=== PATIENT | female | born 1975 | race Caucasian/White ===

== ENCOUNTER → 2016-08-05 | Outpatient (CLI) | payer BC ==
[~2016-08-05] MED LIST: MTR600X PO; PRENTAB26 PO; TYL325X PO
== END | disposition home or self-care (01) ==
LOC: C.PAPS 10:00
PROVIDERS: ATTEND Obstetrics & Gynecology
DX: Z01.419 Encounter for gynecological examination (general) (routine) without abnormal findings (principal)

== ENCOUNTER 2020-07-30 09:03 | Observation (INO) ==
--- NOTE | 2020-07-30 09:36 | Emergency Department Note ---
History of Present Illness General Chief complaint: Abdominal Pain Stated complaint: ABDOMINAL PAIN Time Seen by Provider: 07/30/20 09:12 Source: patient Mode of arrival: ambulatory Limitations: no limitations History of Present Illness Maximum Pain Intensity: 4 This patient is a 44-year-old female who presents to the emergency department for evaluation of abdominal pain. Patient has had intermittent pain for the past 1 week. She states that her pain started in her lower abdomen but has gradually moved to be more on the right side. She states that she always has some mild pain, but there has been intermittent more severe pain. At this time, she rates her discomfort a 3/10. She has had associated bloating and gassiness. She denies nausea/vomiting, fever, or urinary symptoms. Last menstrual period was about 2 weeks ago and was normal. Denies abnormal vaginal discharge or bleeding. Patient was seen at [facility] 1 week ago as she thought she might have a urine infection due to the pain and had a urinalysis, however there was a lab error and this was never completed. Patient does admit to a COVID-19 exposure 12 days ago and has not developed any COVID symptoms in that time. She does have a pending COVID test which was ordered on 07/25/2020, however was not yet completed due to a lab error. Patient states she is otherwise healthy and denies any history of abdominal issues or surgeries. Home Medications Medication Instructions Recorded Confirmed Type No Known Home Medications 07/03/20 07/30/20 History Allergies Allergy/AdvReac Type Severity Reaction Status Date / Time No Known Allergies Allergy Unverified 07/30/20 09:46 Past Med/Surg History Medical History Common migraine without aura Surgical History H/O dilation and curettage H/O oral surgery H/O ovarian cystectomy Family History Other Asthma Hypertension Denies family history of Ovarian cancer Breast cancer Colorectal cancer Social History Smoking Status: Never smoker Hx Alcohol Use: Yes Hx Substance Use: No Preferred Language: [place]de[place] Feels Safe at Home: Yes Review of Systems A total of 10 systems reviewed and were otherwise negative Physical Exam Vital Signs Vital Signs - 24 hr 07/30/20 09:07 07/30/20 11:46 07/30/20 12:58 Temperature 37.2 C Temperature Source Temporal Artery Scan Pulse Rate 99 H Pulse Rate [Finger] 78 88 Respiratory Rate 16 16 18 Respiratory Effort / Characteristics Non-Labored Spontaneous Non-Labored Spontaneous Respiratory Depth Normal Normal Respiratory Pattern Regular Regular Blood Pressure 139/91 Blood Pressure [Right Arm] 132/75 149/79 H Blood Pressure Mean 107 Blood Pressure Mean [Right Arm] 94 102 Blood Pressure Position Sitting Pulse Oximetry 100 96 100 Oxygen Delivery Method Room Air Room Air Sepsis Recent Fever Within 48 Hours No Sepsis New/Unexplained Change in Mental Status N/A Sepsis Action Taken by Nursing No Action Required 07/30/20 13:49 Temperature Temperature Source Pulse Rate Pulse Rate [Finger] 68 Respiratory Rate 18 Respiratory Effort / Characteristics Respiratory Depth Respiratory Pattern Blood Pressure Blood Pressure [Right Arm] 149/79 H Blood Pressure Mean Blood Pressure Mean [Right Arm] 102 Blood Pressure Position Pulse Oximetry 99 Oxygen Delivery Method Sepsis Recent Fever Within 48 Hours Sepsis New/Unexplained Change in Mental Status Sepsis Action Taken by Nursing VITALS: Vitals are noted on the nurse's note and reviewed by myself. Vital s igns stable. GENERAL: This is a 44-year-old female, in no acute distress, nondiaphoretic, well-developed well-nourished. SKIN: The skin was without rashes. HEAD: Normocephalic atraumatic. EARS: External auditory canals clear, tympanic membranes pearly rivers without erythema or effusion bilaterally. EYES: Pupils equal round and reactive to light and accommodation. NOSE: Patent, turbinates without inflammation or discharge. MOUTH: Mucous membranes moist. Tonsils are not enlarged. Pharynx without erythema or exudate. NECK: Supple without nuchal rigidity. No lymphadenopathy. HEART: Regular rate and rhythm without murmurs gallops or rubs. LUNGS: Clear to auscultation bilaterally without wheezes, rales or rhonchi. No retractions or accessory muscle use. ABDOMEN: Positive bowel sounds x 4. Soft, moderate tenderness to palpation in the right lower quadrant. No guarding or rebound tenderness. NEURO: Patient was alert and oriented to person place and time. Course Consultations Consultation #1: Dr. Jasso - general surgery Administered Medications Discontinued Medications Cefoxitin Sodium (Mefoxin) 2,000 mg in 60 mls @ 100 mls/hr IV NOW STA Stop: 07/30/20 13:11 Last Infusion: 07/30/20 13:37 Dose: 0 mls/hr Documented by: [id number] Admin: 07/30/20 12:54 Dose: 100 mls/hr Documented by: [id number] Ioversol (Ioversol 100ml) 94 ml IV ONCE ONE Stop: 07/30/20 12:06 Last Admin: 07/30/20 12:06 Dose: 94 ml Documented by: [id number] Medical Decision Making Differential Diagnosis Appendicitis, ovarian cyst, ovarian torsion, ectopic , TOA, PID, infections, diverticulitis, UTI, obstruction, mesenteric ischemia, aortic pathology, inflammatory bowel disease, renal colic, PUD, pancreatitis, biliary pathology, hernia, volvulus, constipation, as well as other pathologies. Home Medications Current Medication List: was personally reviewed by me Laboratory Data Attestation: I reviewed the patient's lab results. Result diagrams: 07/30/20 Unknown 07/30/20 Unknown Lab Results 07/30/20 07/30/20 07/30/20 Range/Units 13:15 13:40 13:40 WBC (4.8-10.8) K/uL RBC (4.2-5.4) M/uL Hgb (12.0-16.0) g/dL Hct (37-47) % MCV (80-100) fL MCH (25-34) pg MCHC (32-36) g/dL RDW Std Deviation (36.4-46.3) fL RDW Coeff of Marek (11.5-14.5) % Plt Count (130-400) K/uL MPV (7.4-10.4) fL Immature Gran % (Auto) % Neut % (Auto) % Lymph % (Auto) % [place] % (Auto) % Eos % (Auto) % Baso % (Auto) % Neut # (Auto) (1.4-6.5) K/uL Lymph # (Auto) (1.2-3.4) K/uL [place] # (Auto) (0.11-0.59) K/uL Eos # (Auto) (0-0.5) K/uL Baso # (Auto) (0-0.2) K/uL Immature Gran # (Auto) (0.00-0.02) K/uL Sodium (136-145) mmol/L Potassium (3.5-5.1) mmol/L Chloride (98-107) mmol/L Carbon Dioxide (21-32) mmol/L Anion Gap (3-11) BUN (7-18) mg/dl Creatinine (0.6-1.2) mg/dl Est Cr Clr Drug Dosing ml/min Est GFR ( Amer) Est GFR (Non-Af Amer) BUN/Creatinine Ratio (10-20) Glucose (70-99) mg/dl Calcium (8.5-10.1) mg/dl Total Bilirubin (0.2-1) mg/dl AST (15-37) U/L ALT (12-78) U/L Alkaline Phosphatase (45-117) U/L Total Protein (6.4-8.2) gm/dl Albumin (3.4-5.0) gm/dl Globulin (2.5-4.0) gm/dl Albumin/Globulin Ratio (0.9-2) Lipase (73-393) U/L Urine Color Urine Appearance (Clear) Urine pH (4.5-7.5) Ur Specific [place] (1.000-1.030) Urine Protein (Negative) Urine Glucose (UA) (Negative) Urine Ketones (Negative) Urine Blood (Negative) Urine Nitrite (Negative) Urine Bilirubin (Negative) Urine Urobilinogen (Negative) Ur Leukocyte Esterase (Negative) Urine WBC (Auto) (0-5) /hpf Urine RBC (Auto) (0-4) /hpf U Hyaline Cast (Auto) (0-5) /lpf U Epithel Cells (Auto) (0-5) /lpf Urine Bacteria (Auto) (Negative) POC Ur Test (NEG) COVID-19 Eval Order Covid19 [facility] SARS-CoV-2, RNA, NAAT NEGATIVE (NEGATIVE) SARS-CoV-2 Ag (Rapid) Negative (Negative) 07/30/20 07/30/20 07/30/20 Range/Units Unknown Unknown Unknown WBC 10.13 (4.8-10.8) K/uL RBC 4.33 (4.2-5.4) M/uL Hgb 12.1 (12.0-16.0) g/dL Hct 36.0 L (37-47) % MCV 83.1 (80-100) fL MCH 27.9 (25-34) pg MCHC 33.6 (32-36) g/dL RDW Std Deviation 39.3 (36.4-46.3) fL RDW Coeff of Marek 13.0 (11.5-14.5) % Plt Count 224 (130-400) K/uL MPV 10.7 H (7.4-10.4) fL Immature Gran % (Auto) 0.1 % Neut % (Auto) 76.6 % Lymph % (Auto) 14.0 % [place] % (Auto) 8.9 % Eos % (Auto) 0.2 % Baso % (Auto) 0.2 % Neut # (Auto) 7.76 H (1.4-6.5) K/uL Lymph # (Auto) 1.42 (1.2-3.4) K/uL [place] # (Auto) 0.90 H (0.11-0.59) K/uL Eos # (Auto) 0.02 (0-0.5) K/uL Baso # (Auto) 0.02 (0-0.2) K/uL Immature Gran # (Auto) 0.01 (0.00-0.02) K/uL Sodium 138 (136-145) mmol/L Potassium 3.6 (3.5-5.1) mmol/L Chloride 107 (98-107) mmol/L Carbon Dioxide 25 (21-32) mmol/L Anion Gap 5.0 (3-11) BUN 8 (7-18) mg/dl Creatinine 0.79 (0.6-1.2) mg/dl Est Cr Clr Drug Dosing 83.5 ml/min Est GFR ( Amer) 107.0 Est GFR (Non-Af Amer) 92.3 BUN/Creatinine Ratio 10.2 (10-20) Glucose 94 (70-99) mg/dl Calcium 9.0 (8.5-10.1) mg/dl Total Bilirubin 0.4 (0.2-1) mg/dl AST 11 L (15-37) U/L ALT 15 (12-78) U/L Alkaline Phosphatase 69 (45-117) U/L Total Protein 7.6 (6.4-8.2) gm/dl Albumin 3.5 (3.4-5.0) gm/dl Globulin 4.1 H (2.5-4.0) gm/dl Albumin/Globulin Ratio 0.9 (0.9-2) Lipase 98 (73-393) U/L Urine Color Yellow Urine Appearance Clear (Clear) Urine pH 6.5 (4.5-7.5) Ur Specific [place] 1.015 (1.000-1.030) Urine Protein Negative (Negative) Urine Glucose (UA) Negative (Negative) Urine Ketones Negative (Negative) Urine Blood 1+ H (Negative) Urine Nitrite Negative (Negative) Urine Bilirubin Negative (Negative) Urine Urobilinogen Negative (Negative) Ur Leukocyte Esterase Negative (Negative) Urine WBC (Auto) 1-5 (0-5) /hpf Urine RBC (Auto) 5-10 H (0-4) /hpf U Hyaline Cast (Auto) 1-5 (0-5) /lpf U Epithel Cells (Auto) >30 H (0-5) /lpf Urine Bacteria (Auto) Negative (Negative) POC Ur Test (NEG) COVID-19 Eval Order SARS-CoV-2, RNA, NAAT (NEGATIVE) SARS-CoV-2 Ag (Rapid) (Negative) 07/30/20 Range/Units Unknown WBC (4.8-10.8) K/uL RBC (4.2-5.4) M/uL Hgb (12.0-16.0) g/dL Hct (37-47) % MCV (80-100) fL MCH (25-34) pg MCHC (32-36) g/dL RDW Std Deviation (36.4-46.3) fL RDW Coeff of Marek (11.5-14.5) % Plt Count (130-400) K/uL MPV (7.4-10.4) fL Immature Gran % (Auto) % Neut % (Auto) % Lymph % (Auto) % [place] % (Auto) % Eos % (Auto) % Baso % (Auto) % Neut # (Auto) (1.4-6.5) K/uL Lymph # (Auto) (1.2-3.4) K/uL [place] # (Auto) (0.11-0.59) K/uL Eos # (Auto) (0-0.5) K/uL Baso # (Auto) (0-0.2) K/uL Immature Gran # (Auto) (0.00-0.02) K/uL Sodium (136-145) mmol/L Potassium (3.5-5.1) mmol/L Chloride (98-107) mmol/L Carbon Dioxide (21-32) mmol/L Anion Gap (3-11) BUN (7-18) mg/dl Creatinine (0.6-1.2) mg/dl Est Cr Clr Drug Dosing ml/min Est GFR ( Amer) Est GFR (Non-Af Amer) BUN/Creatinine Ratio (10-20) Glucose (70-99) mg/dl Calcium (8.5-10.1) mg/dl Total Bilirubin (0.2-1) mg/dl AST (15-37) U/L ALT (12-78) U/L Alkaline Phosphatase (45-117) U/L Total Protein (6.4-8.2) gm/dl Albumin (3.4-5.0) gm/dl Globulin (2.5-4.0) gm/dl Albumin/Globulin Ratio (0.9-2) Lipase (73-393) U/L Urine Color Urine Appearance (Clear) Urine pH (4.5-7.5) Ur Specific [place] (1.000-1.030) Urine Protein (Negative) Urine Glucose (UA) (Negative) Urine Ketones (Negative) Urine Blood (Negative) Urine Nitrite (Negative) Urine Bilirubin (Negative) Urine Urobilinogen (Negative) Ur Leukocyte Esterase (Negative) Urine WBC (Auto) (0-5) /hpf Urine RBC (Auto) (0-4) /hpf U Hyaline Cast (Auto) (0-5) /lpf U Epithel Cells (Auto) (0-5) /lpf Urine Bacteria (Auto) (Negative) POC Ur Test NEG (NEG) COVID-19 Eval Order SARS-CoV-2, RNA, NAAT (NEGATIVE) SARS-CoV-2 Ag (Rapid) (Negative) Imaging Data Attestation: I personally reviewed and interpreted this imaging study as elan correa: Radiologist's Impression: ABDOMEN AND PELVIS CT WITH IV AND ORAL CONTRAST FINDINGS: The lung bases are clear. No pneumoperitoneum. No pneumatosis. No frac tures within the visualized osseous structures. A 1 cm hypodense lesion within the right hepatic lobe. This is difficult to characterize due to its small size but may demonstrate discontinuous peripheral nodular enhancement. Therefore, this favors a hemangioma. The gallbladder, spleen, adrenal glands, kidneys, and pancreas are unremarkable. No retroperitoneal lymphadenopathy. Normal caliber abdominal aorta. The bladder is unremarkable. There is trace pelvic free fluid. There is a thick-walled and dilated appendix within the right lower quadrant best seen on image 282. This measures 17 mm in diameter and contains a 1 cm appendicolith. There is extensive periappendiceal fat stranding. Therefore, this is consistent with acute appendicitis. No definite perforation. Low density heterogeneous structure within the right lower quadrant on image 299 favors the right ovary. This is slightly increased in size compared to the left and could be reactive to the adjacent inflammatory process. Thickening at the cecal base is likely reactive to the acute appendicitis. IMPRESSION: 1. Acute appendicitis as described above. 2. Low density heterogeneous structure within the right lower quadrant favors the right ovary. This is slightly increased in size compared to the left ovary and could be reactive to the adjacent inflammatory process. 3. Thickening of the cecal base is also likely reactive to the acute appendicitis. 4. A 1 cm hypodense lesion within the right hepatic lobe. This is difficult to characterize due to its small size but favors a hemangioma. MDM Narrative The patient is a 44-year-old female who presents today complaining of right lower quadrant abdominal pain. WBC count is upper limits of normal. Labs otherwise unremarkable, no anemia or concerning electrolyte abnormalities. Urinalysis not suggestive of infection, urine negative. CT of the abdomen/pelvis with IV and oral contrast shows acute appendicitis with extensive periappendiceal inflammation. General surgery consulted, patient given cefoxitin. Rapid Covid test ordered. Patient will be taken for operative management. Impression & Plan Acute appendicitis Discharge Plan Visit Data Chief Complaint: Abdominal Pain Stated Complaint: ABDOMINAL PAIN ED Provider: Pascual Rucker ED Midlevel Provider: Marjan Juan Discharge Problem: Acute appendicitis Discharge Instructions Interventions: ED Discharge Assessment Last Done: 07/30/20 14:28 Forms Stand Alone Forms: [facility]itant Prescriptions Prescriptions: No Action No Known Home Medications RF: 0 Referrals Referrals: Jose Roberto Hughes III, MD [Primary Care Provider] - Discharge Problem: Acute appendicitis Qualifiers: Acute appendicitis type: with localized peritonitis Appendicitis gangrene presence: unspecified whether gangrene present Appendicitis perforation presence: without perforation Appendicitis abscess presence: without abscess Qualified Code(s): K35.30 - Acute appendicitis with localized peritonitis, without perforation or gangrene
[2020-07-30 09:46] LABS: Basophils # (auto) 0.02 K/uL (0-0.2); Basophils % (auto) 0.2 %; Eosinophils # (auto) 0.02 K/uL (0-0.5); Eosinophils % (auto) 0.2 %; Hemoglobin 12.1 g/dL (12.0-16.0); Immature Granulocytes # (auto) 0.01 K/uL (0.00-0.02); Immature Granulocytes % (auto) 0.1 %; Lymphocytes # (auto) 1.42 K/uL (1.2-3.4); Mean Corpuscular Hemoglobin 27.9 pg (25-34); Mean Corpuscular Hgb Conc 33.6 g/dL (32-36); Mean Corpuscular Volume 83.1 fL (80-100); Mean Platelet Volume 10.7 fL (7.4-10.4); Monocytes % (auto) 8.9 %; Neutrophils # (auto) 7.76 K/uL (1.4-6.5); Neutrophils % (auto) 76.6 %; Platelet Count 224 K/uL (130-400); RDW Standard Deviation 39.3 fL (36.4-46.3); Red Blood Count 4.33 M/uL (4.2-5.4); White Blood Count 10.13 K/uL (4.8-10.8)
[2020-07-30 09:52] LABS: Appearance Urine Clear (Clear); Bacteria Urine Automated Negative (Negative); Bilirubin Urine Negative (Negative); Blood Urine 1+ (Negative); Color Urine Yellow; Epithelial Cell Urine Auto >30 /lpf (0-5); Glucose Urine UA Negative (Negative); Ketones Urine Negative (Negative); Leukocyte Esterase Urine Negative (Negative); Nitrite Urine Negative (Negative); Protein Urine Negative (Negative); Specific Gravity Urine 1.015 (1.000-1.030); Urobilinogen Urine Negative (Negative); pH Urine 6.5 (4.5-7.5)
[2020-07-30 10:04] LABS: Albumin Level 3.5 gm/dl (3.4-5.0); BUN Creatinine Ratio 10.2 (10-20); Creatinine Clr Calc Pharmacy 83.5 ml/min; Est GFR (Non-African American) 92.3; Potassium 3.6 mmol/L (3.5-5.1)
[2020-07-30 10:07] LABS: Albumin Globulin Ratio 0.9 (0.9-2); Bilirubin,Total 0.4 mg/dl (0.2-1); Globulin 4.1 gm/dl (2.5-4.0); Total Protein 7.6 gm/dl (6.4-8.2)
[2020-07-30] MEDS ORDERED: OPTIRAY 320 100ml IV ONE (12:05)
--- NOTE | 2020-07-30 12:27 | CT Scan Report ---
ABDOMEN AND PELVIS CT WITH IV AND ORAL CONTRAST CT DOSE: 269.66 mGy.cm HISTORY: Right lower quadrant pain. TECHNIQUE: Multiaxial CT images of the abdomen and pelvis were performed following the use of intrave nous and oral contrast. A dose lowering technique was utilized adhering to the principles of ALARA. COMPARISON STUDY: None. FINDINGS: The lung bases are clear. No pneumoperitoneum. No pneumatosis. No fractures within the visu alized osseous structures. A 1 cm hypodense lesion within the right hepatic lobe. This is difficult t o characterize due to its small size but may demonstrate discontinuous peripheral nodular enhancement . Therefore, this favors a hemangioma. The gallbladder, spleen, adrenal glands, kidneys, and pancreas are unremarkable. No retroperitoneal lymphadenopathy. Normal caliber abdominal aorta. The bladder is unremarkable. There is trace pelvic free fluid. There is a thick-walled and dilated appendix within the right lower quadrant best seen on image 282. This measures 17 mm in diameter and contains a 1 cm appendicolith. There is extensive periappendiceal fat stranding. Therefore, this is consistent with a cute appendicitis. No definite perforation. Low density heterogeneous structure within the right lowe r quadrant on image 299 favors the right ovary. This is slightly increased in size compared to the le ft and could be reactive to the adjacent inflammatory process. Thickening at the cecal base is likely reactive to the acute appendicitis. IMPRESSION: 1. Acute appendicitis as described above. 2. Low density heterogeneous structure within the right lower quadrant favors the right ovary. This i s slightly increased in size compared to the left ovary and could be reactive to the adjacent inflamm atory process. 3. Thickening of the cecal base is also likely reactive to the acute appendicitis. 4. A 1 cm hypodense lesion within the right hepatic lobe. This is difficult to characterize due to it s small size but favors a hemangioma. ACT 112: Negative or not required by law. Electronically signed by: Salvador Baker M.D. 07/30/2020 12:25 PM
[2020-07-30] MEDS ORDERED: cefOXitin 2,000 MG/60 ML BAG IV STA ×2 (12:36→13:36)
--- NOTE | 2020-07-30 13:32 | Surgery Consultation ---
Date of Consultation July 30, 2020 Assessment & Plan (1) Acute appendicitis: pt is a 44 year-old female who presents to Er with acute abdominal pain, IMP: acute appendicitis, PLan, I recommend to do laparoscopic appendectomy, possible open, D/W benefits, risks and alternatives of the surgery, the risks - infection, bleeding, abscess, injury other organs, bowel obstruction, pt understood, she agrees with the surgery, I answered all questions, pre-op antibiotic Present on Admission?: Yes History of Present Illness History of Present Illness History of Present Illness General Chief complaint: Abdominal Pain Stated complaint: ABDOMINAL PAIN Time Seen by Provider: 07/30/20 09:12 Source: patient Mode of arrival: ambulatory Limitations: no limitations History of Present Illness Maximum Pain Intensity: 4 This patient is a 44-year-old female who presents to the emergency department for evaluation of abdominal pain. Patient has had intermittent pain for the past 1 week. She states that her pain started in her lower abdomen but has gradually moved to be more on the right side. She states that she always has some mild pain, but there has been intermittent more severe pain. At this time, she rates her discomfort a 3/10. She has had associated bloating and gassiness. She denies nausea/vomiting, fever, or urinary symptoms. Last menstrual period was about 2 weeks ago and was normal. Denies abnormal vaginal discharge or bleeding. Patient was seen at [facility] 1 week ago as she thought she might have a urine infection due to the pain and had a urinalysis, however there was a lab error and this was never completed. Patient does admit to a COVID-19 exposure 12 days ago and has not developed any COVID symptoms in that time. She does have a pending COVID test which was ordered on 07/25/2020, however was not yet completed due to a lab error. I ( Nancy Jasso MD ) got a call for consult acute appendicitis, I reviewed pt's H/P, labs, CT scan with pt , pt is still have RLQ pain, Patient states she is otherwise healthy and denies any history of abdominal issues or surgeries. Home Medications Medication Instructions Recorded Confirmed Type No Known Home Medications 07/03/20 07/30/20 History Allergies Allergy/AdvReac Type Severity Reaction Status Date / Time No Known Allergies Allergy Unverified 07/30/20 09:46 Past Med/Surg History Medical History Common migraine without aura Surgical History H/O dilation and curettage H/O oral surgery H/O ovarian cystectomy Family History Other Asthma Hypertension Denies family history of Ovarian cancer Breast cancer Colorectal cancer Social History Smoking Status: Never smoker Hx Alcohol Use: Yes Hx Substance Use: No Preferred Language: Indonesian Feels Safe at Home: Yes Review of Systems A total of 10 systems reviewed and were otherwise negative Allergies Allergy/AdvReac Type Severity Reaction Status Date / Time No Known Allergies Allergy Unverified 07/30/20 09:46 Home Medications Medication Instructions Recorded Confirmed Type No Known Home Medications 07/03/20 07/30/20 History Patient History Medical History Common migraine without aura Surgical History H/O dilation and curettage H/O oral surgery H/O ovarian cystectomy Family History Other Asthma Hypertension Denies family history of Ovarian cancer Breast cancer Colorectal cancer Social History Smoking Status: Never smoker Hx Alcohol Use: Yes Hx Substance Use: No Preferred Language: Indonesian Feels Safe at Home: Yes Review of Systems Review of Systems: All systems reviewed & are unremarkable except as noted in HPI & below Constitutional: as per Subjective / HPI Eyes: as per Subjective / HPI Ear, Nose, Mouth, Throat: as per Subjective / HPI Respiratory: as per Subjective / HPI Cardiovascular: as per Subjective / HPI Gastrointestinal: as per Subjective / HPI Genitourinary: as per Subjective / HPI Musculoskeletal: as per Subjective / HPI Integumentary: as per Subjective / HPI Neurologic: as per Subjective / HPI migraine Psychiatric: as per Subjective / HPI Endocrine: as per Subjective / HPI Hematologic / Lymphatic: as per Subjective / HPI Allergy / Immunological: as per Subjective / HPI Physical Exam Constitutional: WD/WN, vitals as above well developed and well nourished Eyes: PERRL, conjunctivae normal, anicteric sclerae ENMT: external ear and nose normal, oropharynx normal Neck: trachea midline, no thyromegaly Respiratory: normal respiratory effort, lungs clear to auscultation normal respiratory effort Cardiovascular: RRR, no murmur, no edema Rate/Rhythm: regular rate and regular rhythm Heart Sounds: normal S1 and normal S2 Gastrointestinal (Abdomen): Percussion/Palpation: + abdomen tender and abdomen soft tenderness at RLQ, rebound pain, , no distend, BS + Musculoskeletal: no cyanosis or clubbing, extremities motor strength 5/5 Skin: no rashes, warm and dry Neurologic: awake Psychiatric: Orientation: alert and oriented x 3 Results & Data ([facility]) Vital Signs (Past 12 Hours) Vital Signs Temp Pulse Pulse Resp BP BP Pulse Ox 07/30/20 12:58 88 18 149/79 H 100 07/30/20 11:46 78 16 132/75 96 07/30/20 09:07 37.2 C 99 H 16 139/91 100 Laboratory Results Abnormal lab results 07/30/20 07/30/20 07/30/20 Range/Units Unknown Unknown Unknown Hct 36.0 L (37-47) % MPV 10.7 H (7.4-10.4) fL Neut # (Auto) 7.76 H (1.4-6.5) K/uL [place] # (Auto) 0.90 H (0.11-0.59) K/uL AST 11 L (15-37) U/L Globulin 4.1 H (2.5-4.0) gm/dl Urine Blood 1+ H (Negative) Urine RBC (Auto) 5-10 H (0-4) /hpf U Epithel Cells (Auto) >30 H (0-5) /lpf Diagnostic Findings ABDOMEN AND PELVIS CT WITH IV AND ORAL CONTRAST CT DOSE: 269.66 mGy.cm HISTORY: Right lower quadrant pain. TECHNIQUE: Multiaxial CT images of the abdomen and pelvis were performed following the use of intravenous and oral contrast. A dose lowering technique was utilized adhering to the principles of ALARA. COMPARISON STUDY: None. FINDINGS: The lung bases are clear. No pneumoperitoneum. No pneumatosis. No fractures within the visualized osseous structures. A 1 cm hypodense lesion within the right hepatic lobe. This is difficult to characterize due to its s mall size but may demonstrate discontinuous peripheral nodular enhancement. Therefore, this favors a hemangioma. The gallbladder, spleen, adrenal glands, kidneys, and pancreas are unremarkable. No retroperitoneal lymphadenopathy. Normal caliber abdominal aorta. The bladder is unremarkable. There is trace pelvic free fluid. There is a thick-walled and dilated appendix within the right lower quadrant best seen on image 282. This measures 17 mm in diameter and contains a 1 cm appendicolith. There is extensive periappendiceal fat stranding. Therefore, this is consistent with acute appendicitis. No definite perforation. Low density heterogeneous structure within the right lower quadrant on image 299 favors the right ovary. This is slightly increased in size compared to the left and could be reactive to the adjacent inflammatory process. Thickening at the cecal base is likely reactive to the acute appendicitis. IMPRESSION: 1. Acute appendicitis as described above. 2. Low density heterogeneous structure within the right lower quadrant favors the right ovary. This is slightly increased in size compared to the left ovary and could be reactive to the adjacent inflammatory process. 3. Thickening of the cecal base is also likely reactive to the acute appendicitis. 4. A 1 cm hypodense lesion within the right hepatic lobe. This is difficult to characterize due to its small size but favors a hemangioma. (1) Acute appendicitis Acute appendicitis type: with localized peritonitis Appendicitis abscess presence: without abscess Appendicitis gangrene presence: unspecified whether gangrene present Appendicitis perforation presence: without perforation Qualified Code(s): K35.30 - Acute appendicitis with localized peritonitis, without perforation or gangrene
--- NOTE | 2020-07-30 13:36 | History & Physical Bridge Note ---
Date of Service July 30, 2020 History & Physical Bridge Note I have examined the patient, reviewed the History & Physical and in the interval since the performance of the History & Physical I have noted the following changes of clinical significance: no changes noted
[2020-07-30] MEDS ORDERED: fentaNYL citrate 100 MCG/2 ML VIAL ONE (14:09)
[2020-07-30] MEDS ORDERED: MIDAZOLAM HCL 1 MG/ML 2ML VIAL ONE (14:09)
[2020-07-30] MEDS ORDERED: ePHEDrine sulfate 50 MG/ML AMP IV PRN (14:21)
[2020-07-30] MEDS ORDERED: MEPERIDINE HCL 25 MG/ML CARP/VIAL IV PRN (14:21)
[2020-07-30] MEDS ORDERED: fentaNYL citrate 100 MCG/2 ML VIAL IV PRN (14:21)
[2020-07-30] MEDS ORDERED: HYDROmorphone INJ 1 MG/ML SYRINGE IV PRN ×2 (14:21→17:15)
[2020-07-30] MEDS ORDERED: LABETALOL HCL IV 5 MG/ML 20ML IV PRN (14:21)
[2020-07-30] MEDS ORDERED: PHENYLEPHRINE 100MCG/ML 5ML SYR IV PRN (14:21)
[2020-07-30] MEDS ORDERED: ONDANSETRON INJ 2 MG/ML 2 ML VIAL IV PRN ×2 (14:21→15:50)
[2020-07-30] MEDS ORDERED: ATROPINE SULFATE 0.1 MG/ML 10ML SYR IV PRN (14:21)
[2020-07-30] MEDS ORDERED: BUPIVACAINE 0.5 % 5 MG/1 ML MPF 30ML VIAL ONE (14:33)
[2020-07-30] MEDS ORDERED: LIDOCAINE 1% LOCAL 20 ML VIAL ONE (14:33)
[2020-07-30] MEDS ORDERED: BACITRACIN OINT 15 GM TUBE ONE (14:34)
--- NOTE | 2020-07-30 14:39 | Anesthesiology Consultation ---
Date of Service July 30, 2020 Covid 19 negative today. Assessment & Plan (1) Encounter for pre-operative examination: Chart Review Chart Review: Acceptable Risk for Surgery and Patient NOT seen in Pre Admission Testing Consults Requested none History Surgery Operation Date: 07/30/20 12:50 Proposed Procedures p Laparoscopic Appendectomy - Nancy Jasso MD Height/Weight Height: 5 ft 5 in Weight: 62.3 kg Allergies Allergy/AdvReac Type Severity Reaction Status Date / Time No Known Allergies Allergy Unverified 07/30/20 09:46 Medications Home Medications Medication Instructions Recorded Confirmed Last Taken No Known Home Medications 07/03/20 07/30/20 Unknown Past Medical History Medical History Common migraine without aura Past Family History Family History Other Asthma Hypertension Denies family history of Ovarian cancer Breast cancer Colorectal cancer Past Surgical History Surgical History H/O dilation and curettage H/O oral surgery H/O ovarian cystectomy Social History Smoking Status: Never smoker Hx Alcohol Use: Yes Hx Substance Use: No Physical Exam Vital Signs Last Vital Signs Temp 37.2 C 07/30/20 09:07 Pulse 68 07/30/20 13:49 Resp 18 07/30/20 13:49 BP 149/79 H 07/30/20 13:49 Pulse Ox 99 07/30/20 13:49 Testing Laboratory Results 07/30/20 Unknown 07/30/20 Unknown Urine Color Yellow 07/30/20 Unknown Urine Appearance Clear (Clear) 07/30/20 Unknown Urine pH 6.5 (4.5-7.5) 07/30/20 Unknown Ur Specific [place] 1.015 (1.000-1.030) 07/30/20 Unknown Urine Protein Negative (Negative) 07/30/20 Unknown Urine Glucose (UA) Negative (Negative) 07/30/20 Unknown Urine Ketones Negative (Negative) 07/30/20 Unknown Urine Nitrite Negative (Negative) 07/30/20 Unknown Ur Leukocyte Esterase Negative (Negative) 07/30/20 Unknown Urine WBC (Auto) 1-5 /hpf (0-5) 07/30/20 Unknown Urine RBC (Auto) 5-10 /hpf (0-4) H 07/30/20 Unknown U Hyaline Cast (Auto) 1-5 /lpf (0-5) 07/30/20 Unknown U Epithel Cells (Auto) >30 /lpf (0-5) H 07/30/20 Unknown Urine Bacteria (Auto) Negative (Negative) 07/30/20 Unknown 07/30/20 Unknown POC Ur Test NEG
[2020-07-30] MEDS ORDERED: LIDOCAINE 2% 2 ML VIAL/AMP(20MG/ML) INFIL ONE (15:22)
[2020-07-30] MEDS ORDERED: NEOSTIGMINE METHYLSULFATE 5 MG/5 ML SYR ONE (15:22)
[2020-07-30] MEDS ORDERED: GLYCOPYRROLATE 0.2 MG/ML VIAL ONE ×2 (15:22→15:49)
[2020-07-30] MEDS ORDERED: PROPOFOL IV EMULSION 10 MG/ML 20 ML VIAL IV ONE (15:22)
[2020-07-30] MEDS ORDERED: ONDANSETRON INJ 2 MG/ML 2 ML VIAL ONE (15:22)
[2020-07-30] MEDS ORDERED: ROCURONIUM BROMIDE 10 MG/ML 5 ML VIAL IV ONE (15:22)
[2020-07-30] MEDS ORDERED: DEXAMETHASONE SOD INJ 4 MG/ML VIAL ONE (15:22)
--- NOTE | 2020-07-30 15:46 | Post Operative Brief Note ---
Immediate Post Op Note v1 Date of Surgery July 30, 2020 Pre & Post Diagnosis Operation Date: 07/30/20 12:50 Pre-Op Diagnosis: A. Acute appendicitis Post-Op Diagnosis: A. Acute appendicitis I identified the patient and participated in the time-out.: Yes Procedure Operation Date: 07/30/20 12:50 Actual Procedures p Laparoscopic Appendectomy(Not Applicable) - Nancy Jasso MD Surgeon Nancy Jasso MD [employer] Making Machine Operator CARLA Lin Estimated Blood Loss 10 Findings Consistent with Post-Op Diagnosis acute appendicitis inflammation on base of appendix Fluids 800ml Specimens appendix Anesthesia Type General Complications none Disposition Accompanied Patient To Recovery: Yes Disposition: Recovery Room Overlapping Procedure I was immediately available: during the entire case.
--- NOTE | 2020-07-30 16:47 | Anesthesiology Progress Note ---
Date of Service July 30, 2020 Anesthesia Post Procedure Vital Signs Vital Signs: Temp Pulse Pulse Pulse Resp BP BP 07/30/20 16:35 36.7 C 69 20 117/73 07/30/20 16:25 74 16 118/74 07/30/20 16:15 79 15 111/64 07/30/20 16:05 36.6 C 85 16 114/74 07/30/20 14:49 37.7 C H 100 H 18 147/86 H 07/30/20 13:49 68 18 149/79 H 07/30/20 12:58 88 18 149/79 H 07/30/20 11:46 78 16 132/75 07/30/20 09:07 37.2 C 99 H 16 139/91 Pulse Ox 07/30/20 16:35 100 07/30/20 16:25 100 07/30/20 16:15 100 07/30/20 16:05 100 07/30/20 14:49 98 07/30/20 13:49 99 07/30/20 12:58 100 07/30/20 11:46 96 07/30/20 09:07 100 Pain Intensity Abdomen: Pain Intensity: 2 Transfer of Care Handoff Completed per policy Notes Mental Status: alert / awake / arousable Patient Amnestic to Procedure: Yes Nausea / Vomiting: adequately controlled Pain: adequately controlled Airway Patency, RR, SpO2: stable & adequate BP & HR: stable & adequate Hydration State: stable & adequate Anesthetic Complications: no major complications apparent and Pt Satisfied with anesthetic care
--- NOTE | 2020-07-30 17:03 | Anesthesiology Progress Note ---
Date of Service July 30, 2020 Anesthesia Post Procedure Vital Signs Vital Signs: Temp Pulse Pulse Pulse Resp BP BP 07/30/20 16:35 36.7 C 69 20 117/73 07/30/20 16:25 74 16 118/74 07/30/20 16:15 79 15 111/64 07/30/20 16:05 36.6 C 85 16 114/74 07/30/20 14:49 37.7 C H 100 H 18 147/86 H 07/30/20 13:49 68 18 149/79 H 07/30/20 12:58 88 18 149/79 H 07/30/20 11:46 78 16 132/75 07/30/20 09:07 37.2 C 99 H 16 139/91 Pulse Ox 07/30/20 16:35 100 07/30/20 16:25 100 07/30/20 16:15 100 07/30/20 16:05 100 07/30/20 14:49 98 07/30/20 13:49 99 07/30/20 12:58 100 07/30/20 11:46 96 07/30/20 09:07 100 Pain Intensity Abdomen: Pain Intensity: 2 Transfer of Care Handoff Completed per policy Notes Mental Status: alert / awake / arousable and participated in evaluation Patient Amnestic to Procedure: Yes Nausea / Vomiting: adequately controlled Pain: adequately controlled Airway Patency, RR, SpO2: stable & adequate BP & HR: stable & adequate Hydration State: stable & adequate Anesthetic Complications: no major complications apparent and Pt Satisfied with anesthetic care
[2020-07-30] MEDS ORDERED: ACETAMINOPHEN 325 MG TAB PO PRN (17:15)
[2020-07-30] MEDS ORDERED: oxyCODONE/ACETAMINOPHEN 5mg/325mg TAB PO PRN (17:15)
[2020-07-30] MEDS: LACTATED RINGER'S 1,000 ML IV SCH (17:28)
[2020-07-30] MEDS ORDERED: INFLUENZA ADMINISTRATION CHARGE ONE (18:00)
[2020-07-30] MEDS ORDERED: INFLUENZA VIRUS QUAD VACCINE 0.5 ML SYR IM ONE (18:00)
[2020-07-30 18:16] LABS: Basophils # (auto) 0.01 K/uL (0-0.2); Basophils % (auto) 0.1 %; Hematocrit (blood only) 35.4 % (37-47); Hemoglobin 12.1 g/dL (12.0-16.0); Immature Granulocytes # (auto) 0.02 K/uL (0.00-0.02); Immature Granulocytes % (auto) 0.1 %; Lymphocytes # (auto) 0.63 K/uL (1.2-3.4); Lymphocytes % (auto) 4.3 %; Mean Corpuscular Hemoglobin 28.3 pg (25-34); Mean Corpuscular Hgb Conc 34.2 g/dL (32-36); Mean Corpuscular Volume 82.7 fL (80-100); Mean Platelet Volume 10.9 fL (7.4-10.4); Neutrophils # (auto) 13.68 K/uL (1.4-6.5); Neutrophils % (auto) 93.5 %; Platelet Count 218 K/uL (130-400); RDW Coefficient of Variation 13.2 % (11.5-14.5); RDW Standard Deviation 39.8 fL (36.4-46.3); Red Blood Count 4.28 M/uL (4.2-5.4); White Blood Count 14.64 K/uL (4.8-10.8)
--- NOTE | 2020-07-31 01:36 | Operative Report (OR) ---
DATE OF OPERATION: 07/30/2020 PREOPERATIVE DIAGNOSIS: Acute appendicitis. POSTOPERATIVE DIAGNOSIS: Acute appendicitis. OPERATION: Laparoscopic appendectomy. SURGEON: Nancy Jasso MD. CARD SELLER: Aracelis Avila PA-C. ANESTHESIA: General. ESTIMATED BLOOD LOSS: About 10 mL. FINDINGS: Acute appendicitis, significant inflammation on the base of the appendix. COMPLICATIONS: None. INDICATIONS FOR THE PROCEDURE: This is a 44-year-old female who presented to ED with acute abdominal pain. The patient had a CT scan diagnosis of acute appendicitis. I recommended to do laparoscopic appendectomy, possible open. I did talk to the patient about the benefit, the risk, alternate procedure. I indicated the risks may include but not limited such as bleeding, infection, abscess, injury to other organs, bowel obstruction. The patient understands. She signed informed consent and I answered all questions. DETAILS OF PROCEDURE: We brought the patient to the OR, put the patient in the supine position. The patient received SCD on bilateral legs to prevent DVT. Also, patient received 2 g cefoxitin IV for prophylactic antibiotic. The patient received general anesthesia without difficulties. Abdomen was prepped and draped in routine sterile fashion. After time-out, I injected local anesthesia by using 1% lidocaine mixed with 0.5% Marcaine just above umbilicus. Then I made a small incision just above umbilicus, opened fascia and opened peritoneum under direct vision, put a Helen trocar in, connected to CO2 to create pneumoperitoneum. Flow rate at 6 liters per minute. Pressure not more than 14 mmHg. Once we got a nice pneumoperitoneum, we put the camera in, looked around the abdomen, shows normal finding on the small bowel, large bowel; however, the appendix has significant inflammation, enlarged and inflammation on the base of the appendix, so confirmed diagnosis of acute appendicitis. Then, we put another two 5 mm trocars on the left lower quadrant area. Once all trocars in, we used the grasper to hold the appendix and take down the appendiceal by using Harmonic, rechecked, no active bleeding and based on the patient had significant inflammation on the base of the appendix, we chose a 45 mm Endo-MARYANN transection on the base of the appendix and rechecked the staple line intact and no active bleeding. Then we removed the appendix through the catch bag. Then we reinserted Helen trocar in, connected to CO2 to create pneumoperitoneum, again looked around the abdomen. Again, the staple line intact and no active bleeding, no leak. The patient also has a cecum area of inflammation. Again, this was at base of the appendix, some inflammation. Rechecked and no active bleeding and we removed all trocar under direct vision. No active bleeding from the trocar sites. Pneumoperitoneum was released, now closed the umbilical incision, fascial layer by using 0 Vicryl [id number] x2, closed subcutaneous layer by using 2-0 Vicryl interruptedly, closed skin by using 4-0 Vicryl continuous running, closed another two 5 mm trocar site skin only by using 4-0 Vicryl. The patient tolerated the procedure well. Then, we put the dressing on. The patient tolerated the procedure well. All instrument, needle and sponge count were correct x2 at the end of the case. The patient transferred to recovery room in stable condition. Specimen sent to pathology. lead dental assistant, CARLA Lin, to help during procedure to hold the camera and retraction and was necessary. I attest to the content of the Intraoperative Record and any orders documented therein. Any exception s are noted below.
[2020-07-31] MEDS: LACTATED RINGER'S 1,000 ML IV SCH (05:38)
[2020-07-31 06:59] LABS: Hematocrit (blood only) 31.7 % (37-47); Immature Granulocytes # (auto) 0.01 K/uL (0.00-0.02); Immature Granulocytes % (auto) 0.1 %; Lymphocytes # (auto) 0.86 K/uL (1.2-3.4); Lymphocytes % (auto) 8.8 %; Mean Corpuscular Hemoglobin 28.6 pg (25-34); Mean Corpuscular Hgb Conc 34.7 g/dL (32-36); Mean Corpuscular Volume 82.3 fL (80-100); Mean Platelet Volume 10.9 fL (7.4-10.4); Monocytes # (auto) 0.85 K/uL (0.11-0.59); Monocytes % (auto) 8.7 %; Neutrophils # (auto) 8.07 K/uL (1.4-6.5); Neutrophils % (auto) 82.4 %; Platelet Count 233 K/uL (130-400); RDW Coefficient of Variation 13.2 % (11.5-14.5); RDW Standard Deviation 39.9 fL (36.4-46.3); Red Blood Count 3.85 M/uL (4.2-5.4); White Blood Count 9.79 K/uL (4.8-10.8)
--- NOTE | 2020-07-31 11:36 | Discharge Summary ---
Date of Service July 31, 2020 Admission HPI Per Admitting Provider This patient is a 44-year-old female who presents to the emergency department for evaluation of abdominal pain. Patient has had intermittent pain for the past 1 week. She states that her pain started in her lower abdomen but has gradually moved to be more on the right side. She states that she always has some mild pain, but there has been intermittent more severe pain. At this time, she rates her discomfort a 3/10. She has had associated bloating and gassiness. She denies nausea/vomiting, fever, or urinary symptoms. Last menstrual period was about 2 weeks ago and was normal. Denies abnormal vaginal discharge or bleeding. Patient was seen at [facility] 1 week ago as she thought she might have a urine infection due to the pain and had a urinalysis, however there was a lab error and this was never completed. Patient does admit to a COVID-19 exposure 12 days ago and has not developed any COVID symptoms in that time. She does have a pending COVID test which was ordered on 07/25/2020, however was not yet completed due to a lab error. I ( Nancy Jasso MD ) got a call for consult acute appendicitis, I reviewed pt's H/P, labs, CT scan with pt , pt is still have RLQ pain, Principal Diagnosis Acute appendicitis Discharge Exam Constitutional WD/WN, vitals as above Respiratory normal respiratory effort; no respiratory distress and no labored breathing Gastrointestinal (Abdomen) Inspection/Auscultation: abdomen normal to inspection; abdomen not distended Percussion/Palpation: + abdomen tender (mild at incision sites) and abdomen soft; no guarding and abdomen not rigid Skin no rashes, warm and dry + incision (covered with intact dry dressings) Psychiatric A+Ox3, euthymic affect Discharge Data Allergies Allergy/AdvReac Type Severity Reaction Status Date / Time No Known Allergies Allergy Verified 07/30/20 14:57 Procedures Performed Operation Date: 07/30/20 12:50 Actual Procedures p Laparoscopic Appendectomy(Not Applicable) - Nancy Jasso MD Ordered Studies 07/30/20 09:31 CT abd pelvis oral and IV con Stat Hospital Course (1) Acute appendicitis: Patient was taken to operating room for emergency department for laparoscopic appendectomy by Dr. Jasso. Patient found to have acute appendicitis without perforation or abscess however there was significant inflammation in the RLQ and of the uterus and colon secondary to the acute appendicitis. Patient tolerated procedure well and was transferred to recovery then to medical/surgical floor for postop care. Diet was advanced to clear liquids, oral Percocet and Tylenol ordered as needed for pain medication, activity as tolerated, IV fluids @ 80 cc/hr, and IV Cefoxitin 2 gm postop dose. POD # 1 patient doing well, avss, pain minimal at incisions controlled with Tylenol. No nausea or vomiting. tolerated clears. Diet was advanced, encouraged to ambulate burdick and patient was discharged home in stable condition. Total Time Total Time Spent Total Time Spent (In Minutes): 20 Total Time Includes: Examination of the Patient, Discharge Planning and Medication Reconciliation Discharge Plan Discharge Items Patient Disposition: Home - Self-Care Reason For Visit: ACUTE ABDOMINAL PAIN Discharge Diagnosis: Acute appendicitis Activity: Per Instructions section Non-emergency contact: Surgeon Call non-emergency contact if: you have any medication questions, your pain is not controlled, your pain is worsening, your pain is concerning for you, you have a fever, your temperature is above 101, your wound has increased redness, your wound has increased drainage and your wound pain has increased Follow-up/Referrals: Jose Roberto Hughes III, MD [Primary Care Provider] - Nancy Jasso MD [Physician] - 08/13/20 1:45 pm Diet: Regular Addtl Attending Provider Instructions: General Surgery discharge instructions: - no heavy lifting over 20 pounds for 3-4 weeks - no strenuous activity until cleared by surgeon - no submerging incisions for 2 weeks (bathing, swimming, hot tubs) - No driving while taking narcotic pain medication Incision care: - Keep dressings dry for 3 days. May sponge bath and wash hair in meantime. After 3 days, remove outer dressings and shower. - Leave steri strips on incisions for 7 days and remove Pain management: May alternate extra strength Tylenol and Ibuprofen as needed for pain. - 650 mg of Tylenol every 6 hours - 600 mg of Ibuprofen every 6 hours (take with food) Percocet can be used for severe pain as needed. Take as directed. You will be given antibiotics for 5 days, please take entire course as directed Follow-up in surgical office in 2 weeks. Please call office at [phone] to make an appointment. Pending Studies at Discharge: Yes Stand-Alone Forms: [facility], Opioid Pain Management, Smoking Cessation Medications and DC Order Prescriptions: New oxycodone-acetaminophen [Percocet] 5-325 mg tablet 1 tab PO Q4H PRN (Reason: pain) Qty: 5 RF: 0 ciprofloxacin HCl 500 mg tablet 500 mg PO BID Qty: 10 RF: 0 metronidazole 500 mg tablet 500 mg PO TID Qty: 15 RF: 0 No Action No Known Home Medications RF: 0 Discharge Orders: Discharge Order (Routine); Ordered 07/31/20 Ordered By: Aracelis Trejo/Other Patient Handouts: Appendectomy Laparoscopic Dc Admission Data Admit Date/Time: 07/30/20 15:51 Attending Provider: Nancy Jasso Admit Provider: Nancy Jasso Primary Care Provider: Jose Roberto Hughes III
== END 2020-07-31 12:35 | disposition home or self-care (01) ==
LOC: ED 09:03 → 3N 09:03

== ENCOUNTER 2021-07-13 10:35 | Observation (INO) ==
[2021-07-13] MEDS ORDERED: SODIUM CHLORIDE 0.9% 1000ML 1,000 ML IV ONE (10:53)
--- NOTE | 2021-07-13 10:56 | Emergency Department Note ---
Impression & Plan Acute appendicitis ED Provider Note Name: KRYSTINA AVALOS Age: 45 Sex: F Arrives Via: Walk-In Informant: Patient ED Provider: Sabino Carrizales MD � Chief Complaint: Abdominal pain Impression: Acute appendicitis Medical Decision Makin-year-old healthy female with a history of migraines arrives for evaluation for right lower quadrant pain initially pain periumbilical over the last 24 hours is now developed in the right lower quadrant. WBC is 18. She has previously had an appendectomy in July 2020, but given the symptoms and the white count of 18 it was felt indicated to get a CT scan. CT reveals appendicitis with a 1.2 centimeter stone within the appendix. There is no perforation or abscess. She is not septic. She was given 2 g IV Mefoxin. She was given IV pain medications with good result. She was kept n.p.o. and was transferred to the OR for further management. Prior Medical Record and Triage/Nursing Notes reviewed by Me Additional history obtained from chart Differentials:�Appendicitis, ovarian cyst, ovarian torsion, ectopic , TOA, PID, infections, diverticulitis, UTI, obstruction, mesenteric ischemia, aortic pathology, inflammatory bowel disease, renal colic, PUD, pancreatitis, biliary pathology, hernia, volvulus, constipation, as well as other pathologies. Vital Signs: reviewed and remarkable for no significant abnormalities Interventions: Saline lock, normal saline bolus, Zofran IV, morphine IV, Dilaudid IV, Mefoxin 2 g IV Labs:��Reviewed and remarkable for WBC 18 Imaging:�See radiology read CT abdomen pelvis with IV contrast reveals acute appendicitis with 1.2 cm appendix stone Consults:�Dr. Green [facility] General surgery Plan: Disposition:�Operating Room Condition: Good History of Present Illness:�45-year-old female arrives for evaluation of abdominal pain. Patient notes that she started having abdominal pain about 24 hours ago. Pain was initially periumbilical and has now radiated to the right lower quadrant where she has primary amount of pain. Pain comes and goes and is worse with movement better with rest. Patient states she took some Tylenol this morning and did have some mild improvement in her pain. This is associated with nausea and the feeling that she needs to vomit but she has not yet vomited. She notes about 2 days ago she had a very small bowel movement but has had no other bowel movements since. Patient denies any chest pain, shortness of breath, fevers, chills, back pain, flank pain, urinary symptoms, leg swelling, diarrhea, rashes, bruising, bleeding, headaches, neck pain, sore throat or other symptoms. She notes her daughter currently has a URI but is otherwise healthy. Patient has a history of appendectomy about 1 year ago as well as a cyst on her ovary removed years earlier. She has no history of bowel obstructions nor other abdominal issues. � ROS: See above HPI for pertinent positives & negatives. A total of 10 systems reviewed and were otherwise negative. 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 Patient denies tobacco or drug use. Rare alcohol use � Home Medications:�None � Allergies:�No known drug allergies � Vitals:��Blood Pressure: 117/71, Pulse 105, RR 18, T 37.2C, O2 98% on RA Physical Exam: GENERAL: Patient is uncomfortable appearing and in mild distress. EYES: No scleral icterus, unremarkable pupils. ENT: Mucous membranes moist, no nasal congestion. NECK: No masses appreciated, no�meningismus, trachea is midline. RESPIRATORY: No dyspnea. Clear to auscultation and equal bilaterally. No wheeze, no rhonchi. CARDIOVASCULAR: Regular rate and rhythm.��No murmurs, rubs, gallops appreciated. GASTROINTESTINAL: RLQ TTP, hyperactive bowel sounds, no peritonitis BACK: No midline tenderness, no CVA tenderness EXTREMITIES: Normal motion all extremities, no cyanosis, no edema. NEUROLOGIC: Alert and oriented, no acute motor or sensory deficits, no focal weakness, cranial nerves grossly intact. SKIN: No rash, no jaundice, no diaphoresis. PSYCH: Appropriate GCS: 15 � ED Course: Times/Reassessments: IV pain medications work for patient's pain she is mildly uncomfortable but declines further pain medications and is agreeable to transfer to the OR for further management Sabino Carrizales MD Past Med/Surg History Medical History Acute appendicitis Common migraine without aura Surgical History H/O dilation and curettage H/O hand surgery ring finger left, giant cell tumor H/O oral surgery H/O ovarian cystectomy History of appendectomy Family History Other Asthma Hypertension Denies family history of Ovarian cancer Breast cancer Colorectal cancer Social History Smoking Status: Never smoker Hx Alcohol Use: Yes Hx Substance Use: No Preferred Language: Colombian Communication Ability: Effective Pattern Keeper Required: No Beliefs That Will Affect Care: None Current Living Situation: Spouse Feels Safe at Home: Yes Assistive Devices: None Allergies Allergies Allergy/AdvReac Type Severity Reaction Status Date / Time No Known Allergies Allergy Verified 07/13/21 12:52 Home Meds Home Medications Medication Instructions Recorded Confirmed No Known Home Medications 07/13/21 07/13/21 Results & Data (ED) Vital Signs Vital Signs - 24 hr 07/13/21 10:37 07/13/21 13:13 07/13/21 14:53 Temperature 37.2 C Temperature Source Temporal Artery Scan Pulse Rate 105 H Pulse Rate [Finger] 83 77 Respiratory Rate 18 18 18 Blood Pressure 117/71 Blood Pressure [Left Arm] 107/56 L 104/56 L Blood Pressure Mean 86 Blood Pressure Mean [Left Arm] 73 72 Pulse Oximetry 98 100 99 Oxygen Delivery Method Room Air Room Air Sepsis Recent Fever Within 48 Hours No Sepsis New/Unexplained Change in Mental Status No Sepsis Action Taken by Nursing No Action Required 07/13/21 15:18 Temperature Temperature Source Pulse Rate Pulse Rate [Finger] Respiratory Rate Blood Pressure Blood Pressure [Left Arm] Blood Pressure Mean Blood Pressure Mean [Left Arm] Pulse Oximetry Oxygen Delivery Method Room Air Sepsis Recent Fever Within 48 Hours Sepsis New/Unexplained Change in Mental Status Sepsis Action Taken by Nursing Laboratory Data Result diagrams: 07/13/21 11:13 07/13/21 11:13 Lab Results 07/13/21 07/13/21 07/13/21 Range/Units 11:13 11:13 11:15 WBC 18.11 H (4.8-10.8) K/uL RBC 4.56 (4.2-5.4) M/uL Hgb 13.0 (12.0-16.0) g/dL Hct 37.6 (37-47) % MCV 82.5 (80-100) fL MCH 28.5 (25-34) pg MCHC 34.6 (32-36) g/dL RDW Std Deviation 39.8 (36.4-46.3) fL RDW Coeff of Marek 13.3 (11.5-14.5) % Plt Count 207 (130-400) K/uL MPV 11.9 H (7.4-10.4) fL Immature Gran % (Auto) 0.2 % Neut % (Auto) 90.1 % Lymph % (Auto) 4.2 % [place] % (Auto) 5.4 % Eos % (Auto) 0.0 % Baso % (Auto) 0.1 % Neut # (Auto) 16.33 H (1.4-6.5) K/uL Lymph # (Auto) 0.76 L (1.2-3.4) K/uL [place] # (Auto) 0.97 H (0.11-0.59) K/uL Eos # (Auto) 0.00 (0-0.5) K/uL Baso # (Auto) 0.01 (0-0.2) K/uL Immature Gran # (Auto) 0.04 H (0.00-0.02) K/uL Sodium 138 (136-145) mmol/L Potassium 3.3 L (3.5-5.1) mmol/L Chloride 106 (98-107) mmol/L Carbon Dioxide 21 (21-32) mmol/L Anion Gap 11.0 (3-11) BUN 7 (7-18) mg/dl Creatinine 0.78 (0.6-1.2) mg/dl Est Cr Clr Drug Dosing 83.7 ml/min Est GFR ( Amer) 107.9 ml/min Est GFR (Non-Af Amer) 93.1 ml/min BUN/Creatinine Ratio 9.5 L (10-20) Glucose 111 H (70-99) mg/dl Calcium 9.4 (8.5-10.1) mg/dl Total Bilirubin 0.9 (0.2-1) mg/dl Direct Bilirubin 0.2 (0-0.2) mg/dl AST 10 L (15-37) U/L ALT 15 (12-78) Alkaline Phosphatase 50 (45-117) U/L Total Protein 7.8 (6.4-8.2) gm/dl Albumin 3.7 (3.4-5.0) gm/dl Lipase 82 (73-393) U/L Urine Color Yellow Urine Appearance Clear (Clear) Urine pH 6.5 (4.5-7.5) Ur Specific [place] 1.018 (1.000-1.030) Urine Protein Negative (Negative) Urine Glucose (UA) Negative (Negative) Urine Ketones 1+ H (Negative) Urine Blood 1+ H (Negative) Urine Nitrite Negative (Negative) Urine Bilirubin Negative (Negative) Urine Urobilinogen Negative (Negative) Ur Leukocyte Esterase Negative (Negative) Urine WBC (Auto) 1-5 (0-5) /hpf Urine RBC (Auto) 10-30 H (0-4) /hpf U Hyaline Cast (Auto) 1-5 (0-5) /lpf U Epithel Cells (Auto) >30 H (0-5) /lpf Urine Bacteria (Auto) Negative (Negative) Urine Test (Negative) SARS-CoV-2, RNA, NAAT (NEGATIVE) 07/13/21 07/13/21 Range/Units 11:15 14:24 WBC (4.8-10.8) K/uL RBC (4.2-5.4) M/uL Hgb (12.0-16.0) g/dL Hct (37-47) % MCV (80-100) fL MCH (25-34) pg MCHC (32-36) g/dL RDW Std Deviation (36.4-46.3) fL RDW Coeff of Marek (11.5-14.5) % Plt Count (130-400) K/uL MPV (7.4-10.4) fL Immature Gran % (Auto) % Neut % (Auto) % Lymph % (Auto) % [place] % (Auto) % Eos % (Auto) % Baso % (Auto) % Neut # (Auto) (1.4-6.5) K/uL Lymph # (Auto) (1.2-3.4) K/uL [place] # (Auto) (0.11-0.59) K/uL Eos # (Auto) (0-0.5) K/uL Baso # (Auto) (0-0.2) K/uL Immature Gran # (Auto) (0.00-0.02) K/uL Sodium (136-145) mmol/L Potassium (3.5-5.1) mmol/L Chloride (98-107) mmol/L Carbon Dioxide (21-32) mmol/L Anion Gap (3-11) BUN (7-18) mg/dl Creatinine (0.6-1.2) mg/dl Est Cr Clr Drug Dosing ml/min Est GFR ( Amer) ml/min Est GFR (Non-Af Amer) ml/min BUN/Creatinine Ratio (10-20) Glucose (70-99) mg/dl Calcium (8.5-10.1) mg/dl Total Bilirubin (0.2-1) mg/dl Direct Bilirubin (0-0.2) mg/dl AST (15-37) U/L ALT (12-78) Alkaline Phosphatase (45-117) U/L Total Protein (6.4-8.2) gm/dl Albumin (3.4-5.0) gm/dl Lipase (73-393) U/L Urine Color Urine Appearance (Clear) Urine pH (4.5-7.5) Ur Specific [place] (1.000-1.030) Urine Protein (Negative) Urine Glucose (UA) (Negative) Urine Ketones (Negative) Urine Blood (Negative) Urine Nitrite (Negative) Urine Bilirubin (Negative) Urine Urobilinogen (Negative) Ur Leukocyte Esterase (Negative) Urine WBC (Auto) (0-5) /hpf Urine RBC (Auto) (0-4) /hpf U Hyaline Cast (Auto) (0-5) /lpf U Epithel Cells (Auto) (0-5) /lpf Urine Bacteria (Auto) (Negative) Urine Test Negative (Negative) SARS-CoV-2, RNA, NAAT NEGATIVE (NEGATIVE) Administered Medications Discontinued Medications Hydromorphone HCl (Hydromorphone Inj 0.5 Mg/0.5 Ml Syr) 0.5 mg IV NOW STA Stop: 07/13/21 13:43 Last Admin: 07/13/21 13:48 Dose: 0.5 mg Documented by: [id number] Sodium Chloride (Nss 1000ml) 1,000 mls @ 999 mls/hr IV .Q1H1M ONE Stop: 07/13/21 11:53 Last Infusion: 07/13/21 12:07 Dose: 0 mls/hr Documented by: [id number] Admin: 07/13/21 11:12 Dose: 999 mls/hr Documented by: [id number] Cefoxitin Sodium (Mefoxin) 2,000 mg in 60 mls @ 100 mls/hr IV NOW STA Stop: 07/13/21 14:12 Last Infusion: 07/13/21 14:53 Dose: 0 mls/hr Documented by: [id number] Admin: 07/13/21 13:55 Dose: 100 mls/hr Documented by: [id number] Ioversol (Optiray 320 100ml) 95 ml IV ONCE ONE Stop: 07/13/21 12:37 Last Admin: 07/13/21 12:36 Dose: 95 ml Documented by: [id number] Morphine Sulfate (Morphine Sulfate 10 Mg/Ml Carp/Vial) 6 mg IV NOW STA Stop: 07/13/21 12:59 Last Admin: 07/13/21 13:10 Dose: 6 mg Documented by: [id number] Ondansetron HCl (Ondansetron Inj 2 Mg/Ml 2 Ml Vial) 4 mg IV NOW STA Stop: 07/13/21 12:59 Last Admin: 07/13/21 13:10 Dose: 4 mg Documented by: [id number] Imaging Data Radiologist's Impression: Abdomen/Pelvis CT 07/13/21 10:[address] WITH IV CONTRAST CT DOSE: 273.44 mGy.cm HISTORY: Acute right lower quadrant abdominal pain RLQ pain, nausea, hyperactive bowel, s/p appendect TECHNIQUE: Multiaxial CT images of the abdomen and pelvis were performed followi ng the IV administration of 95 cc of Optiray, A dose lowering technique was utilized adhering to the principles of ALARA. COMPARISON STUDY: CT abdomen and pelvis 07/30/2020 FINDINGS: Clear lung bases. No pneumatosis or pneumoperitoneum. Unremarkable spleen, pancreas, gallbladder and adrenal glands. Unchanged 10 mm hypodense lesion of the posterior right hepatic lobe suggestive of a probable hemangioma. Patent portal vein. Unremarkable kidneys. No hydronephrosis. Partial distention of the urinary bladder. Follicular changes of the ovaries. Unremarkable uterus. Trace free pelvic fluid. Aorta and IVC are unremarkable. There are a few enlarged right iliac chain lymph nodes measuring up to 1.3 cm which are likely reactive. There is no bowel obstruction. There is wall thickening of the ileum which is likely reactive. Surgical suture material within the abdominal right lower quadrant is suggestive of prior partial appendectomy. The appendiceal stump is dilated measuring up to 2 cm transversely and demonstrates wall thickening with mucosal hyperemia. The remnant appendix measures over 5 cm in length and contains a 1.2 cm appendicolith. Moderate periappendiceal inflammation. Wall thickening at the base of the cecum is likely reactive. No abscess or perforation identified. Unremarkable soft tissues. No acute fracture. IMPRESSION: 1. Postoperative changes of prior partial appendectomy with findings of acute stump appendicitis. The remnant appendix measures over 5 cm in length and contains a 1.2 cm appendicolith. There is periappendiceal inflammation without abscess or perforation. 2. No bowel obstruction. 3. Trace free pelvic fluid. Findings were discussed with Dr. Carrizales on 07/13/2021 at 1:25 PM. ACT 112: Negative or not required by law. The above report was generated using voice recognition software. It may contain grammatical, syntax or spelling errors. Electronically signed by: Gustavo Kerr M.D. 07/13/2021 1:29 PM Discharge Plan Visit Data Chief Complaint: Abdominal Pain Stated Complaint: ABD PAIN ED Provider: Sabino Carrizales Discharge Problem: Acute appendicitis Discharge Instructions Interventions: ED Discharge Assessment Last Done: 07/13/21 15:18 Discharge Problem: Acute appendicitis Qualifiers: Acute appendicitis type: with localized peritonitis Appendicitis gangrene presence: without gangrene Appendicitis perforation presence: without perforation Appendicitis abscess presence: without abscess Qualified Code(s): K35.30 - Acute appendicitis with localized peritonitis, without perforation or gangrene
[2021-07-13 11:34] LABS: Basophils # (auto) 0.01 K/uL (0-0.2); Basophils % (auto) 0.1 %; Hematocrit (blood only) 37.6 % (37-47); Immature Granulocytes # (auto) 0.04 K/uL (0.00-0.02); Immature Granulocytes % (auto) 0.2 %; Lymphocytes # (auto) 0.76 K/uL (1.2-3.4); Lymphocytes % (auto) 4.2 %; Mean Corpuscular Hemoglobin 28.5 pg (25-34); Mean Corpuscular Hgb Conc 34.6 g/dL (32-36); Mean Corpuscular Volume 82.5 fL (80-100); Mean Platelet Volume 11.9 fL (7.4-10.4); Monocytes # (auto) 0.97 K/uL (0.11-0.59); Monocytes % (auto) 5.4 %; Neutrophils # (auto) 16.33 K/uL (1.4-6.5); Neutrophils % (auto) 90.1 %; Platelet Count 207 K/uL (130-400); RDW Coefficient of Variation 13.3 % (11.5-14.5); RDW Standard Deviation 39.8 fL (36.4-46.3); Red Blood Count 4.56 M/uL (4.2-5.4); White Blood Count 18.11 K/uL (4.8-10.8)
[2021-07-13 11:47] LABS: Pregnancy Test, Urine Negative (Negative)
[2021-07-13 11:49] LABS: Appearance Urine Clear (Clear); Bacteria Urine Automated Negative (Negative); Bilirubin Urine Negative (Negative); Blood Urine 1+ (Negative); Color Urine Yellow; Epithelial Cell Urine Auto >30 /lpf (0-5); Glucose Urine UA Negative (Negative); Ketones Urine 1+ (Negative); Leukocyte Esterase Urine Negative (Negative); Nitrite Urine Negative (Negative); Protein Urine Negative (Negative); Specific Gravity Urine 1.018 (1.000-1.030); Urobilinogen Urine Negative (Negative); pH Urine 6.5 (4.5-7.5)
[2021-07-13 11:56] LABS: Albumin Level 3.7 gm/dl (3.4-5.0); BUN Creatinine Ratio 9.5 (10-20); Bilirubin Direct 0.2 mg/dl (0-0.2); Calcium 9.4 mg/dl (8.5-10.1); Creatinine Clr Calc Pharmacy 83.7 ml/min; Est GFR (African American) 107.9 ml/min; Est GFR (Non-African American) 93.1 ml/min; Potassium 3.3 mmol/L (3.5-5.1)
[2021-07-13 11:59] LABS: Bilirubin,Total 0.9 mg/dl (0.2-1); Total Protein 7.8 gm/dl (6.4-8.2)
[2021-07-13] MEDS ORDERED: OPTIRAY 320 100ml IV ONE (12:36)
[2021-07-13] MEDS ORDERED: ONDANSETRON INJ 2 MG/ML 2 ML VIAL IV STA (12:58)
[2021-07-13] MEDS ORDERED: MoRPHine SULFATE 10 MG/ML CARP/VIAL IV STA (12:58)
--- NOTE | 2021-07-13 13:31 | CT Scan Report ---
ABDOMEN AND PELVIS CT WITH IV CONTRAST CT DOSE: 273.44 mGy.cm HISTORY: Acute right lower quadrant abdominal pain RLQ pain, nausea, hyperactive bowel, s/p appendec t TECHNIQUE: Multiaxial CT images of the abdomen and pelvis were performed following the IV administrat ion of 95 cc of Optiray, A dose lowering technique was utilized adhering to the principles of ALARA. COMPARISON STUDY: CT abdomen and pelvis 07/30/2020 FINDINGS: Clear lung bases. No pneumatosis or pneumoperitoneum. Unremarkable spleen, pancreas, gallbl adder and adrenal glands. Unchanged 10 mm hypodense lesion of the posterior right hepatic lobe sugges tive of a probable hemangioma. Patent portal vein. Unremarkable kidneys. No hydronephrosis. Partial d istention of the urinary bladder. Follicular changes of the ovaries. Unremarkable uterus. Trace free pelvic fluid. Aorta and IVC are unremarkable. There are a few enlarged right iliac chain lymph nodes measuring up to 1.3 cm which are likely reactive. There is no bowel obstruction. There is wall thickening of the ileum which is likely reactive. Surgic al suture material within the abdominal right lower quadrant is suggestive of prior partial appendect noman. The appendiceal stump is dilated measuring up to 2 cm transversely and demonstrates wall thicken ing with mucosal hyperemia. The remnant appendix measures over 5 cm in length and contains a 1.2 cm a ppendicolith. Moderate periappendiceal inflammation. Wall thickening at the base of the cecum is like ly reactive. No abscess or perforation identified. Unremarkable soft tissues. No acute fracture. IMPRESSION: 1. Postoperative changes of prior partial appendectomy with findings of acute stump appendicitis. The remnant appendix measures over 5 cm in length and contains a 1.2 cm appendicolith. There is periappe ndiceal inflammation without abscess or perforation. 2. No bowel obstruction. 3. Trace free pelvic fluid. Findings were discussed with Dr. Hamilton on 07/13/2021 at 1:25 PM. ACT 112: Negative or not required by law. The above report was generated using voice recognition software. It may contain grammatical, syntax o r spelling errors. Electronically signed by: Gustavo Kerr M.D. 07/13/2021 1:29 PM
[2021-07-13] MEDS ORDERED: cefOXitin 2,000 MG/60 ML BAG IV STA (13:37)
[2021-07-13] MEDS ORDERED: HYDROmorphone INJ 0.5 MG/0.5 ML SYR IV STA (13:42)
[2021-07-13] MEDS ORDERED: fentaNYL citrate 100 MCG/2 ML VIAL ONE ×2 (14:34→14:46)
[2021-07-13] MEDS ORDERED: PROPOFOL IV EMULSION 10 MG/ML 20 ML VIAL IV ONE (14:34)
[2021-07-13] MEDS ORDERED: LIDOCAINE 2% 2 ML VIAL/AMP(20MG/ML) INFIL ONE (14:34)
[2021-07-13] MEDS ORDERED: ONDANSETRON INJ 2 MG/ML 2 ML VIAL ONE (14:34)
[2021-07-13] MEDS ORDERED: DEXAMETHASONE SOD INJ 4 MG/ML VIAL ONE (14:34)
--- NOTE | 2021-07-13 14:38 | Anesthesiology Consultation ---
Date of Service July 13, 2021 Assessment & Plan (1) Encounter for pre-operative examination: Chart Review Chart Review: entry examiner initiated History Height/Weight Height: 5 ft 5 in Weight: 60.8 kg Allergies Allergy/AdvReac Type Severity Reaction Status Date / Time No Known Allergies Allergy Verified 07/13/21 12:52 Medications Home Medications Medication Instructions Recorded Confirmed Last Taken No Known Home Medications 07/13/21 07/13/21 Unknown Past Medical History Medical History Acute appendicitis Common migraine without aura Past Family History Family History Other Asthma Hypertension Denies family history of Ovarian cancer Breast cancer Colorectal cancer Past Surgical History Surgical History H/O dilation and curettage H/O hand surgery ring finger left, giant cell tumor H/O oral surgery H/O ovarian cystectomy History of appendectomy Social History Smoking Status: Never smoker Hx Alcohol Use: Yes alcohol intake frequency: a few times a month Hx Substance Use: No Physical Exam Vital Signs Last Vital Signs Temp 99.0 F 07/13/21 10:37 Pulse 83 07/13/21 13:13 Resp 18 07/13/21 13:13 BP 107/56 L 07/13/21 13:13 Pulse Ox 100 07/13/21 13:13 Testing Laboratory Results 07/13/21 11:13 07/13/21 11:13 Urine Color Yellow 07/13/21 11:15 Urine Appearance Clear (Clear) 07/13/21 11:15 Urine pH 6.5 (4.5-7.5) 07/13/21 11:15 Ur Specific [place] 1.018 (1.000-1.030) 07/13/21 11:15 Urine Protein Negative (Negative) 07/13/21 11:15 Urine Glucose (UA) Negative (Negative) 07/13/21 11:15 Urine Ketones 1+ (Negative) H 07/13/21 11:15 Urine Nitrite Negative (Negative) 07/13/21 11:15 Ur Leukocyte Esterase Negative (Negative) 07/13/21 11:15 Urine WBC (Auto) 1-5 /hpf (0-5) 07/13/21 11:15 Urine RBC (Auto) 10-30 /hpf (0-4) H 07/13/21 11:15 U Hyaline Cast (Auto) 1-5 /lpf (0-5) 07/13/21 11:15 U Epithel Cells (Auto) >30 /lpf (0-5) H 07/13/21 11:15 Urine Bacteria (Auto) Negative (Negative) 07/13/21 11:15 Urine Test Negative (Negative) 07/13/21 11:15 07/13/21 11:15 Urine Test Negative
[2021-07-13] MEDS ORDERED: fentaNYL citrate 100 MCG/2 ML VIAL IV PRN (14:39)
[2021-07-13] MEDS ORDERED: ePHEDrine sulfate 50 MG/ML AMP IV PRN (14:39)
[2021-07-13] MEDS ORDERED: ONDANSETRON INJ 2 MG/ML 2 ML VIAL IV PRN ×2 (14:39→18:03)
[2021-07-13] MEDS ORDERED: ATROPINE SULFATE 0.1 MG/ML 10ML SYR IV PRN (14:39)
--- NOTE | 2021-07-13 14:49 | History & Physical Report ---
Date of Service July 13, 2021 Assessment & Plan (1) Appendicitis: Plan: Remnant appendix with 1.2 cm appendicolith and inflammatory changes WBC 18,000 Will plan for laparoscopic appendectomy, possible open appendectomy Mefoxin was given in the ED History of Present Illness Primary Care Provider: Chayito Willson PA-C 45 y/o female with periumbilical pain localizing to RLQ over past 24 hours. Had some nausea, no fevers or chills. Had prior appendectomy on 07/31/[address] Jasso. Was discharged after overnight stay, no abdominal complaints until now. Has not had anything to eat since last night. Allergies Allergy/AdvReac Type Severity Reaction Status Date / Time No Known Allergies Allergy Verified 07/13/21 12:52 Home Medications Medication Instructions Recorded Confirmed Type No Known Home Medications 07/13/21 07/13/21 History Past Med/Surg History Medical History Acute appendicitis Common migraine without aura Surgical History H/O dilation and curettage H/O hand surgery ring finger left, giant cell tumor H/O oral surgery H/O ovarian cystectomy History of appendectomy Family History Other Asthma Hypertension Denies family history of Ovarian cancer Breast cancer Colorectal cancer Social History Smoking Status: Never smoker Hx Alcohol Use: Yes Hx Substance Use: No Preferred Language: Moldovan Communication Ability: Effective Appraisal Specialist Required: No Beliefs That Will Affect Care: None Current Living Situation: Spouse Feels Safe at Home: Yes Assistive Devices: None Review of Systems Constitutional: no fever and no chills Respiratory: no cough and no dyspnea Gastrointestinal: + abdominal pain and + nausea; no vomiting Physical Exam Constitutional: WD/WN, vitals as above Respiratory: normal respiratory effort, lungs clear to auscultation Cardiovascular: RRR, no murmur, no edema Gastrointestinal (Abdomen): Inspection/Auscultation: abdomen normal to in spection Percussion/Palpation: + abdomen tender (RLQ) and abdomen soft Skin: no rashes, warm and dry Results & Data Results & Data ([facility]) Vital Signs (Past 12 Hours) Vital Signs Temp Pulse Pulse Resp BP BP Pulse Ox 07/13/21 13:13 83 18 107/56 L 100 07/13/21 10:37 37.2 C 105 H 18 117/71 98 Supervising Physician Co-Signing Physician Notes Patient seen and examined, labs and imaging reviewed, agree with above. 45-year-old female with history of laparoscopic appendectomy performed in July 2020. Wednesday she started having increasing abdominal pain that was worse than her prior episode but similar. She also had anorexia. On exam she is afebrile with stable vitals. Her abdomen is soft but tender to palpation in the right lower quadrant with localized guarding. WBC 18. CT scan personally reviewed and interpreted by myself and agree with the assessment of a dilated appendiceal stump with appendicolith. Stump appendicitis Plan for laparoscopic appendectomy The risk the procedure were discussed to include but not limited to bleeding, infection, damage to surrounding structures, need for future more extensive surg angelina, conversion to open, and the risk of anesthesia PG Care Time/CCT Total # of Minutes Spent Total Time Spent with Patient: Total time spent is greater than 50% in coordination of care (as documented) at patient's floor/unit and/or counseling patient: Coding Level of Care Code None Diagnoses Appendicitis K37
[2021-07-13] MEDS ORDERED: BUPIVACAINE 0.5 % 5 MG/1 ML MPF 30ML VIAL ONE (15:16)
[2021-07-13] MEDS ORDERED: SUCCINYLCHOLINE CHLORIDE 20 MG/ML 10 ML VIAL IV ONE (16:13)
[2021-07-13] MEDS ORDERED: KETOROLAC 30 MG/ML VIAL ONE (16:48)
[2021-07-13] MEDS ORDERED: ROCURONIUM BROMIDE 10 MG/ML 5 ML VIAL IV ONE (16:48)
--- NOTE | 2021-07-13 16:57 | Operative Report ---
PG Post Operative Report Pre & Post Diagnosis Operation Date: 07/13/21 15:00 Pre-Op Diagnosis: Appendicitis with Remnant appendix Post-Op Diagnosis: Perforated appendicitis with Remnant appendix I identified the patient and participated in the time-out.: Yes Procedure Operation Date: 07/13/21 15:00 Actual Procedures p Laparoscopic Appendectomy(Not Applicable) - Ward Green DO, CULLEN Surgeon Ward Green DO, CULLEN Seismograph Observer Joss Gallagher Estimated Blood Loss 5 Findings Consistent with Post-Op Diagnosis Perforated appendiceal stump evident upon entry with purulent drainage. Able to gently and bluntly dissect the appendiceal stump away from surrounding structures. Mesoappendix was taken down with harmonic scalpel. Purple loaded 16mm Endo MARYANN stapler used to divide the base of the appendix and portion of the cecum. 15 round JAVIER drain placed in the right lower quadrant. Good hemostasis. Specimens remnant appendix and appendicolith Drains 15 round JAVIER in right lower quadrant Anesthesia Type General Complications none Disposition Accompanied Patient To Recovery: No Disposition: Recovery Room Indications 45-year-old female with a history of laparoscopic appendectomy performed in July 2020 presented with right lower quadrant pain. CT showed stump appendicitis with remnant appendicolith. Plan for laparoscopic appendectomy. The risks of the procedure were discussed, all questions were answered, and the patient agreed to proceed with surgery as planned. Description of Procedure The patient was properly identified, consented, and taken to the operating room where she was placed in the supine position. General endotracheal anesthesia was induced. SCDs and a safety belt were placed. Preoperative antibiotics were administered. A Ortega catheter with the placed as the patient urinated prior to surgery. The patient's abdomen was prepped and draped in the standard sterile fashion. Surgical timeout was performed and all parties were in agreement that this was the correct patient and procedure to be performed and we continued as planned. A curvilinear infraumbilical incision was made with electrocautery and deepened down to the fascia with blunt dissection. The base of the umbilicus was grasped with a Kimmie and elevated towards the ceiling. An incision was made in the midline fascia with a knife and entry into the peritoneum was confirmed. Stay suture of 0 Vicryl was placed and a Sesay trocar was inserted. The abdomen was insufflated with carbon dioxide which the patient tolerated without incident. The laparoscope was inserted and no damage from initial trocar placement was noted. There was purulent fluid evident in the right lower quadrant and pelvis. No other gross abnormalities were noted within the 4 quadrants the abdomen. 5 mm ports were then placed in the left lower quadrant with care not to damage the epigastric vessels, and in the suprapubic midline with care not to damage the bladder. The patient was placed in Trendelenburg position and rotated towards the left. The small bowel was swept away from the right lower quadrant. There was significant scarring in the right lower quadrant from the prior surgery. The terminal ileum was identified and it appeared that the end of the remnant appendix was scarred to ligament of Treves. This was taken down with blunt and suction dissection. There was evidence of ischemia and a perforation near the base of the appendix at the antimesenteric border. We were able to gently dissect the remnant appendix away from the surrounding structures. This was quite slow and meticulous given the amount of scarring in the location to the base of the cecum and the terminal ileum. The remnant of the mesoappendix was taken down with harmonic scalpel. We were able to dissect down to what appeared to be the base of the appendix which is where the perforation was. A purple loaded endoscopic stapler was then used to divide the appendix at its base, and we did take a small amount of cecum to ensure we had a healthy base away from the perforation. As we stapled a fecalith came out of the perforation of the appendix. This was retrieved and placed in the Endo Catch bag along with the appendix, and removed through the umbilical port site. There was still purulent fluid in the pelvis and right lower quadrant. The right lower quadrant and pelvis was irrigated and hemostasis was found to be good. A 15 round JAVIER drain was placed into the right lower quadrant and pelvis and exited through the left lower quadrant incision. It was secured in place with a 2-0 nylon suture. 5 mm trochar wasremoved under direct visualization and the abdomen was allowed to collapse. The umbilical port site fascia was closed with 0 Vicryl suture. The wound was irrigated, and the skin of all ports was closed with 4-0 Monocryl subcuticular sutures. Dermabond was placed over the wounds. A drain dressing was placed around the JAVIER drain. The patient was extubated in the operating room and taken to the PACU where she recovered without apparent incident. All sponge, instrument and needle counts were correct at the conclusion of the procedure. The patient tolerated the procedure well. The physician's title assistant was present and scrubbed for the entire the case. He was critical in positioning the patient, prepping and draping, retraction and exposure, driving the laparoscope, closure the incisions, and placement of the dressings. I attest to the content of the Intraoperative Record and any orders documented therein. Any exceptions are noted below.
--- NOTE | 2021-07-13 17:11 | Anesthesiology Progress Note ---
Date of Service July 13, 2021 Anesthesia Post Procedure Vital Signs Vital Signs: Temp Pulse Pulse Resp BP BP Pulse Ox 07/13/21 14:53 77 18 104/56 L 99 07/13/21 13:13 83 18 107/56 L 100 07/13/21 10:37 99.0 F 105 H 18 117/71 98 Pain Intensity Right Abdomen: Pain Intensity: 4 Transfer of Care Handoff Completed per policy Notes Mental Status: alert / awake / arousable and participated in evaluation Patient Amnestic to Procedure: Yes Nausea / Vomiting: adequately controlled Pain: adequately controlled Airway Patency, RR, SpO2: stable & adequate BP & HR: stable & adequate Hydration State: stable & adequate Anesthetic Complications: no major complications apparent and Pt Satisfied with anesthetic care
[2021-07-13] MEDS ORDERED: PROMETHAZINE HCL 12.5 MG in SODIUM CHLORIDE 0.9% 50 ML IV PRN (18:03)
[2021-07-13] MEDS ORDERED: PIPERACILL/TAZOBAC CONSULT ACTIVE PRN (18:03)
[2021-07-13] MEDS ORDERED: KETOROLAC 30 MG/ML VIAL IV PRN (18:03)
[2021-07-13] MEDS ORDERED: PIPERACILLIN/TAZOBACTAM 3.375 GM in DEXTROSE 5% 100 ML IV ONE (19:00)
[2021-07-13] MEDS: NSS + 20MEQ KCL 20 MEQ/1,000 ML BAG IV SCH (19:05)
[2021-07-14] MEDS: PIPERACILLIN/TAZOBACTAM 3.375 GM in DEXTROSE 5% 100 ML IV SCH ×4 (00:12→23:22)
[2021-07-14 07:20] LABS: Hematocrit (blood only) 31.3 % (37-47); Hemoglobin 10.4 g/dL (12.0-16.0); Immature Granulocytes # (auto) 0.03 K/uL (0.00-0.02); Immature Granulocytes % (auto) 0.2 %; Lymphocytes # (auto) 1.03 K/uL (1.2-3.4); Lymphocytes % (auto) 6.4 %; Mean Corpuscular Hemoglobin 28.3 pg (25-34); Mean Corpuscular Hgb Conc 33.2 g/dL (32-36); Mean Corpuscular Volume 85.1 fL (80-100); Mean Platelet Volume 12.2 fL (7.4-10.4); Monocytes # (auto) 0.87 K/uL (0.11-0.59); Monocytes % (auto) 5.4 %; Neutrophils # (auto) 14.14 K/uL (1.4-6.5); Platelet Count 169 K/uL (130-400); RDW Coefficient of Variation 13.8 % (11.5-14.5); RDW Standard Deviation 42.5 fL (36.4-46.3); Red Blood Count 3.68 M/uL (4.2-5.4); White Blood Count 16.07 K/uL (4.8-10.8)
[2021-07-14] MEDS: HYDROmorphone INJ 0.5 MG/0.5 ML SYR IV PRN ×2 (07:41→12:04)
[2021-07-14 07:59] LABS: BUN Creatinine Ratio 11.1 (10-20); Calcium 8.2 mg/dl (8.5-10.1); Creatinine Clr Calc Pharmacy 89.4 ml/min; Est GFR (African American) 116.9 ml/min; Est GFR (Non-African American) 100.9 ml/min; Potassium 3.7 mmol/L (3.5-5.1)
[2021-07-14] MEDS ORDERED: Flu Vaccine (Fluarix) 0.5mL SYR (Standard Dose) IM ONE (08:00)
[2021-07-14] MEDS: NSS + 20MEQ KCL 20 MEQ/1,000 ML BAG IV SCH ×2 (09:22→19:46)
--- NOTE | 2021-07-14 12:05 | Surgery Progress Note ---
Date of Service July 14, 2021 Assessment & Plan (1) History of appendectomy: Plan: POD #1 laparoscopic appendectomy for perforated stump appendicitis. Doing well. Continue IV antibiotics Advance diet as tolerated Continue JAVIER drain We will keep in-house until WBC normalizing, afebrile, and tolerating diet. Admission and Anticipated Discharge Date Admission Date: July 13, 2021 Subjective 45-year-old female POD #1 laparoscopic appendectomy for perforated stump appendicitis. Overall doing well, feels much better. Tolerating clear liquids. Physical Exam Physical Exam: awake/alert Gastrointestinal (Abdomen): Inspection/Auscultation: + abdominal surgical incision (c/d/i with dermabond, some ecchymosis craig-incisionally) Percussion/Palpation: + abdomen tender (Appropriately tender to palpation) and abdomen soft JAVIER drain with serosanguineous fluid Results & Data ([facility]) Vital Signs (Past 12 Hours) Vital Signs Temp Pulse Resp BP Pulse Ox 07/14/21 07:22 36.8 C 81 18 99/63 L 100 07/14/21 02:51 36.9 C 69 14 97/58 L 97 Laboratory Results Laboratory Results - last 24 hr 07/13/21 07/14/21 07/14/21 14:24 06:22 06:22 WBC 16.07 H RBC 3.68 L Hgb 10.4 L Hct 31.3 L MCV 85.1 MCH 28.3 MCHC 33.2 RDW Std Deviation 42.5 RDW Coeff of Marek 13.8 Plt Count 169 MPV 12.2 H Immature Gran % (Auto) 0.2 Neut % (Auto) 88.0 Lymph % (Auto) 6.4 Vilas % (Auto) 5.4 Eos % (Auto) 0.0 Baso % (Auto) 0.0 Neut # (Auto) 14.14 H Lymph # (Auto) 1.03 L Vilas # (Auto) 0.87 H Eos # (Auto) 0.00 Baso # (Auto) 0.00 Immature Gran # (Auto) 0.03 H Sodium 141 Potassium 3.7 Chloride 111 H Carbon Dioxide 23 Anion Gap 7.0 BUN 8 Creatinine 0.73 Est Cr Clr Drug Dosing 89.4 Est GFR ( Amer) 116.9 Est GFR (Non-Af Amer) 100.9 BUN/Creatinine Ratio 11.1 Glucose 107 H Calcium 8.2 L SARS-CoV-2, RNA, NAAT NEGATIVE PG Care Time/CCT Total # of Minutes Spent Total Time Spent with Patient: Total time spent is greater than 50% in coordination of care (as documented) at patient's floor/unit and/or counseling patient: Coding Level of Care Code None Diagnoses History of appendectomy Z90.49
[2021-07-14] MEDS ORDERED: MoRPHine SULFATE 2 MG/ML CARP IV PRN (16:31)
[2021-07-14] MEDS ORDERED: oxyCODONE/ACETAMINOPHEN 5mg/325mg TAB PO PRN ×2 (16:31)
[2021-07-14] MEDS ORDERED: ACETAMINOPHEN 325 MG TAB PO PRN (16:32)
[2021-07-15] MEDS: NSS + 20MEQ KCL 20 MEQ/1,000 ML BAG IV SCH (05:00)
[2021-07-15 08:07] LABS: Basophils # (auto) 0.01 K/uL (0-0.2); Basophils % (auto) 0.1 %; Eosinophils # (auto) 0.08 K/uL (0-0.5); Eosinophils % (auto) 0.9 %; Hematocrit (blood only) 30.3 % (37-47); Hemoglobin 9.8 g/dL (12.0-16.0); Immature Granulocytes # (auto) 0.02 K/uL (0.00-0.02); Immature Granulocytes % (auto) 0.2 %; Lymphocytes % (auto) 5.6 %; Mean Corpuscular Hemoglobin 27.9 pg (25-34); Mean Corpuscular Hgb Conc 32.3 g/dL (32-36); Mean Corpuscular Volume 86.3 fL (80-100); Mean Platelet Volume 11.8 fL (7.4-10.4); Monocytes # (auto) 0.47 K/uL (0.11-0.59); Monocytes % (auto) 5.3 %; Neutrophils # (auto) 7.83 K/uL (1.4-6.5); Neutrophils % (auto) 87.9 %; Platelet Count 165 K/uL (130-400); RDW Coefficient of Variation 14.3 % (11.5-14.5); RDW Standard Deviation 44.6 fL (36.4-46.3); Red Blood Count 3.51 M/uL (4.2-5.4); White Blood Count 8.91 K/uL (4.8-10.8)
[2021-07-15] MEDS: PIPERACILLIN/TAZOBACTAM 3.375 GM in DEXTROSE 5% 100 ML IV SCH ×2 (08:28→15:37)
[2021-07-15 08:56] LABS: BUN Creatinine Ratio 11.7 (10-20); Calcium 7.9 mg/dl (8.5-10.1); Creatinine Clr Calc Pharmacy 103.6 ml/min; Est GFR (African American) 127.3 ml/min; Est GFR (Non-African American) 109.9 ml/min; Potassium 3.7 mmol/L (3.5-5.1)
--- NOTE | 2021-07-15 09:07 | Surgery Progress Note ---
Date of Service July 15, 2021 Assessment & Plan (1) History of appendectomy: Plan: POD#2 laparoscopic appendectomy for perforated stump appendicitis WBC 8.9(16), patient afebrile with stable vitals Tolerating a low fiber diet. + bowel function Continue course of abx JAVIER remains in place Will check up on later today Upon dispo will need f/u with Dr. Green and complete course of abx Admission and Anticipated Discharge Date Admission Date: July 13, 2021 Supervising Physician Co-Signing Physician Notes POD#2 lap appendectomy for perforated stump appendicitis. Doing well, tolerating diet, no fevers. AFVSS. abd soft, appropriately ttp, incisions c/d/i. JAVIER ss. wbc normal. d/c drain, d/c to home, 7 days augmentin. wound care instructions and activity restrictions reviewed. f/u in 1-2 weeks. return precautions given Subjective Patient reports feeling well this AM. Tolerating a low fiber diet. Having + bowel function. Pain has been manageable with prn meds. Physical Exam Physical Exam: awake/alert Gastrointestinal (Abdomen): Inspection/Auscultation: + abdominal surgical incision (c/d/i with dermabond overtop) and + abdominal surgical drain present (cloudly serosang drainage, 140cc documented); abdomen not distended Percussion/Palpation: abdomen soft; abdomen nontender Results & Data ([facility]) Vital Signs (Past 12 Hours) Vital Signs Temp Pulse Pulse Resp BP Pulse Ox 07/15/21 07:07 36.8 C 99 H 73 18 122/79 99 07/14/21 22:07 37.1 C 77 14 109/67 97 Laboratory Results INAL DIAGNOSIS Appendix, "appendix remnant and contents" (Laparoscopic appendectomy): - Gangrenous appendicitis with a prominent perforation is seen. - No tumor seen. � at 1446. Clinical History Perforated stump appendicitis. History of prior laparoscopic appendectomy. Procedure performed: Laparoscopic appendectomy. Gross Description APPENDIX REMNANT AND CONTENTS The specimen is received in a container labeled appendix remnant with the patient name. The specimen consists of what appears to represent a portion of appendix and a small amount of associated mesoappendix. The specimen measures 4 cm in length and ranges from 1 to 1.5 cm in diameter. The serosal surface is dull harkins though largely obscured by exudate. The distal portion is markedly irregular though on sectioning multiple sully are noted. A prominent perforation is noted near the proximal end. The wall has a barrera and rivers, mottled appearance and ranges from soft to rubbery. Where intact, it ranges up to 0.6 cm in thickness. A large fecal concretion is noted within the specimen container. Event [employer] sections, including the region of perforation, are submitted in single cassette as A1. PG Care Time/CCT Total # of Minutes Spent Total Time Spent with Patient: Total time spent is greater than 50% in coordination of care (as documented) at patient's floor/unit and/or counseling patient: Coding Level of Care Code None Diagnoses History of appendectomy Z90.49
--- NOTE | 2021-07-18 09:26 | Discharge Summary ---
Date of Service July 18, 2021 Admission HPI Per Admitting Provider 45 y/o female with periumbilical pain localizing to RLQ over past 24 hours. Had some nausea, no fevers or chills. Had prior appendectomy on 07/31/[address] Jasso. Was discharged after overnight stay, no abdominal complaints until now. Has not had anything to eat since last night. Principal Diagnosis Perforated stump appendicitis Discharge Data Allergies Allergy/AdvReac Type Severity Reaction Status Date / Time No Known Allergies Allergy Verified 07/13/21 12:52 Consultations 07/13/21 13:37 ED Decision to Admit Stat Procedures Performed Operation Date: 07/13/21 15:00 Actual Procedures p Laparoscopic Appendectomy(Not Applicable) - Ward Green DO, FACS Ordered Studies 07/13/21 10:53 CT abd pelvis IV con only Stat Hospital Course (1) Acute appendicitis: 45-year-old female presented to the emergency department with complaints of right lower quadrant pain. She had a prior appendectomy performed by Dr. Jasso in July 2020. CT scan showed a remnant appendicitis with fecalith and no evidence of perforation. She underwent uncomplicated laparoscopic appendectomy on 13 July 2021. At the time of surgery it was noted that there was a perforation with purulent fluid in the pelvis. After surgery she was transferred to the medical surgical [facility]cn[facility] where she recovered without incident. At the time of discharge her white blood cell count was normal, she was afebrile, her pain improved, she was tolerating a regular diet, and she was ambulating. She was discharged to home with 1 week of oral antibiotics and plans to follow-up in the general surgery clinic. She was given activity restrictions, wound care instructions, and return precautions. Was discharged on postop day 2 (2) History of appendectomy: Total Time Total Time Spent Total Time Spent (In Minutes): 45 min Total Time Includes: Examination of the Patient, Discharge Planning and Medication Reconciliation Discharge Plan Discharge Items Patient Disposition: Home - Self-Care Reason For Visit: APPENDICITIS Discharge Diagnosis: laparoscopic appendectomy Activity: Per Instructions section Lifting: No more than 10 pounds Bathing Comment: may shower; no soaking in tubs/pools Exercise/Sports: Wait until after follow-up appointment Driving/Machine Use: no driving while taking narcotics for pain Non-emergency contact: Surgeon Call non-emergency contact if: you have any medication questions, your symptoms worsen, your pain is not controlled, your pain is worsening, you have a fever, your temperature is above 101.5, your wound has increased redness, your wound has increased drainage and your wound pain has increased Follow-up/Referrals: Jose Roberto Hughes III, MD [Physician] - Ward Green, CULLEN GREER [Physician] - (Please call to schedule follow up in clinic within 2 weeks) Diet: Low Fiber Addtl Attending Provider Instructions: You may change your dressing where the drain was in place once daily(and as needed) with 4x4 gauze and medical tape until it has healed. Pending Studies at Discharge: Yes Studies:: surgical pathology Stand-Alone Forms: My [facility] [employer], Opioid Pain Management, Smoking Cessation Medications and DC Order Prescriptions: New amoxicillin-pot clavulanate [Augmentin] 875-125 mg tablet 1 tab PO BID Qty: 14 RF: 0 No Action oxycodone-acetaminophen [Percocet] 5-325 mg tablet 1 - 2 tab PO .q4-6h PRN (Reason: pain, for initial therapy, max 6 tabs per day) Qty: 15 RF: 0 Discharge Orders: Discharge Order (Routine); Ordered 07/15/21 Ordered By: Iman Red Admission Data Admit Date/Time: 07/13/21 17:06 Attending Provider: Ward Green Admit Provider: Ward Green Primary Care Provider: Chayito Willson Other Providers: Ward Green Other Interventions: Discharge Summary Assessment (RN) Last Done: 07/15/21 16:48 Coding Level of Care Code D/C DAY MANAGEMENT >30 MINS Diagnoses Acute appendicitis K35.30 Acute appendicitis type: with localized peritonitis Appendicitis abscess presence: without abscess Appendicitis gangrene presence: without gangrene Appendicitis perforation presence: without perforation History of appendectomy Z90.49
== END 2021-07-15 18:10 | disposition home or self-care (01) ==
LOC: ED 10:35 → OR 15:06 → 3N 17:06 → INTOOBSV 17:06
DX: K35.32 Acute appendicitis with perforation, localized peritonitis, and gangrene, without abscess; Z20.822 Contact with and (suspected) exposure to COVID-19; Z82.49 Family history of ischemic heart disease and other diseases of the circulatory system; K35.891 Other acute appendicitis without perforation, with gangrene